=== PATIENT | male | born 1995 | race African-American/Black ===

== ENCOUNTER 2017-05-15 08:57 | Emergency (ER) | payer OTHER ==
[~2017-05-15 08:57] MED LIST: LANTI SQ; LANTUS SOLOS100 U/M1 SQ; LIPI10 PO; NOVOLOG100 U/ML SC; PRILOSEC20 MG PO; ZESTRIL5 MG PO
[2017-05-15 11:07] VITALS: BP 128/76
== END 2017-05-15 11:07 | disposition home or self-care (01) ==
LOC: ED 08:57
DX: J02.9 Acute pharyngitis, unspecified (principal); I10 Essential (primary) hypertension; E11.9 Type 2 diabetes mellitus without complications; Z79.899 Other long term (current) drug therapy
CPT/HCPCS: J1885

== ENCOUNTER 2017-05-21 15:31 | Inpatient (IN) | payer OTHER ==
[~2017-05-21] VITALS: Ht 185.4 cm; Wt 28.0 kg
--- NOTE | 2017-05-21 17:47 | NUR ---
DR FLOWER AT BEDSIDE, NEW ORDERS FOR ABG'S TO BE DRAWN
--- NOTE | 2017-05-21 17:58 | NUR ---
PT BROUGHT IN VIA [employer] [facility] TO BE EVALUATED FOR THE COMPLAINT OF HYPERGLYCEMIA, XEROSTOMIA, AND LEFT EAR ACHE WHICH THE PT IS ALREADY BEING TREATED FOR WITH AMOXICILLIN. KUSSMAUL RESPIRATIONS NOTED. PT APPEARS LETHARGIC. PT ANSWERING QUESTIONS APPROPRIATELY. PT IS A/O X 4. MSE COMPLETED BY DR. FLOWER
[2017-05-21 18:45] LABS: BASOPHIL % 0.2 % (0-2); PLATELET COUNT 289 x10^3mcL (130-400); RED CELL DISTRIBUTION WIDTH 12.7 % (11.5-14.5)
[2017-05-21 18:52] LABS: UA SPECIFIC GRAVITY 1.015 (1.005-1.035); microscopic required? YES; urine erythrocyte TRACE (NEGATIVE)
[2017-05-21 19:01] LABS: ALBUMIN 3.5 g/dL (3.4-5.0); BILIRUBIN TOTAL 0.53 mg/dL (0.20-1.00); CALCIUM 10.1 mg/dL (8.5-10.1); CARBON DIOXIDE 10.6 mmol/L (21-32); CREATININE SERUM 1.8 mg/dL (0.7-1.3)
--- NOTE | 2017-05-21 19:02 | NUR ---
PT REMAINS RESTING IN A POSITION OF COMFORT IN LOW POSITIONED BED WITH SIDE RAILS UP X 2 AND CALL LIGHT WITHIN REACH.
[2017-05-21 19:03] LABS: TOTAL PROTEIN, SERUM 9.8 g/dL (6.4-8.2)
[2017-05-21 19:04] LABS: POTASSIUM SERUM 5.6 mmol/L (3.5-5.1)
--- NOTE | 2017-05-21 19:29 | NUR ---
REPORT RECEIVED BY MAVERICK GOMEZ. PT RESTING IN BED WITH NO SIGNS OF DISTRESS AT THIS TIME. FAMILY AT BEDSIDE.
[2017-05-21 20:12] LABS: FREE T4 1.09 ng/dL (0.76-1.46); T3 TOTAL 0.6 ng/mL
--- NOTE | 2017-05-21 20:13 | NUR ---
REPORT GIVEN TO SONAL GOMEZ.
[2017-05-21 20:20] LABS: CALCIUM 8.6 mg/dL (8.5-10.1); CHLORIDE SERUM 104 mmol/L (98-107); CREATININE SERUM 1.5 mg/dL (0.7-1.3); GFR1 > 60 mL/min; GLUCOSE SERUM 414 mg/dL (74-106); MAGNESIUM 2.1 mg/dL (1.8-2.4); PHOSPHOROUS 4.4 mg/dL (2.5-4.9); SODIUM SERUM 138 mmol/L (136-145)
[2017-05-21 20:26] LABS: CARBON DIOXIDE 9.7 mmol/L (21-32)
[2017-05-21 20:48] VITALS: BP 143/89
--- NOTE | 2017-05-21 23:20 | NUR ---
LAB AT BEDSIDE TO DRAW BLOOD.PTS MOM INQUIRED BY PHONE UPDATED ON PTS STATUS.
[2017-05-21 23:29] VITALS: BP 136/80
[2017-05-22 00:02] LABS: CALCIUM 8.8 mg/dL (8.5-10.1); CHLORIDE SERUM 102 mmol/L (98-107); CREATININE SERUM 1.4 mg/dL (0.7-1.3); GFR1 > 60 mL/min; GLUCOSE SERUM 252 mg/dL (74-106); MAGNESIUM 2.3 mg/dL (1.8-2.4); PHOSPHOROUS 3.8 mg/dL (2.5-4.9); POTASSIUM SERUM 5.1 mmol/L (3.5-5.1); SODIUM SERUM 137 mmol/L (136-145)
[2017-05-22 00:08] LABS: CARBON DIOXIDE 9.4 mmol/L (21-32)
--- NOTE | 2017-05-22 00:15 | NUR ---
PT VOMITTED BROWNISH 200 ML;ZOFRAN GIVEN ORDERED.PTS AUNT AT BEDSIDE UPDATED ON PTS STATUS.
--- NOTE | 2017-05-22 02:41 | NUR ---
OFF INSULIN GTT PER INSULIN PROTOCOL BS 89.
--- NOTE | 2017-05-22 04:09 | NUR ---
SLEEPING AT LONG INTERVALS.LATEST BS 141 OFF INSULIN GTT.RIGHT AC IV WITH NS AT 200 ML/H INFUSING WELL WITH NO INFILTRATION NOTED.NO FURTHER VOMITTING NOTED.CARDIAC SCOPE SHOWS SR WITH NO ECTOPIES.ON ROOM AIR MAINTAINING O2 SAT 100%.CALL LIGHT WITHIN REACH BED ON LOW POSITION.
[2017-05-22 04:14] VITALS: BP 120/72
--- NOTE | 2017-05-22 04:39 | NUR ---
PT SLEEPING ACCU CHECK 266 RE-STARTED INSULIN GTT AT 3 UNITS/H WILL CONTINUE TO MONITOR.
[2017-05-22 05:28] LABS: BASOPHIL % 0.3 % (0-2); CALCIUM 8.7 mg/dL (8.5-10.1); CARBON DIOXIDE 12.6 mmol/L (21-32); CHLORIDE SERUM 105 mmol/L (98-107); CREATININE SERUM 1.4 mg/dL (0.7-1.3); GFR1 > 60 mL/min; GLUCOSE SERUM 262 mg/dL (74-106); MAGNESIUM 2.1 mg/dL (1.8-2.4); PLATELET COUNT 292 x10^3mcL (130-400); POTASSIUM SERUM 4.6 mmol/L (3.5-5.1); RED CELL DISTRIBUTION WIDTH 12.8 % (11.5-14.5); SODIUM SERUM 138 mmol/L (136-145)
--- NOTE | 2017-05-22 07:00 | NUR ---
REPORT RECEIVED AT THIS TIME FROM NOC RN AT BEDSIDE, ALL QUESTIONS ANSWERED, ALL CONCERNS ADDRESSED.
[2017-05-22 08:00] VITALS: BP 115/87
--- NOTE | 2017-05-22 08:00 | NUR ---
PT ASSESSED AT THIS TIME. PT LAYING IN BED SLEEPING. EASILY AROUSABLE AT THIS TIME. PT'S AUNT AT BEDSIDE. PT HAS INSULIN AND NS INFUSING INTO PERIPHERAL LINE. NO SIGN OF INFILTRATION. PT DENIES PAIN AND DISCOMFORT AT THIS TIME. WILL CONTINUE TO MONITOR.
[2017-05-22 08:46] LABS: CALCIUM 8.8 mg/dL (8.5-10.1); CARBON DIOXIDE 16.1 mmol/L (21-32); CHLORIDE SERUM 110 mmol/L (98-107); CREATININE SERUM 1.4 mg/dL (0.7-1.3); GFR1 > 60 mL/min; GLUCOSE SERUM 87 mg/dL (74-106); MAGNESIUM 2.1 mg/dL (1.8-2.4); PHOSPHOROUS 2.9 mg/dL (2.5-4.9); POTASSIUM SERUM 3.9 mmol/L (3.5-5.1); SODIUM SERUM 140 mmol/L (136-145)
--- NOTE | 2017-05-22 09:00 | NUR ---
BLOOD SUGAR 88, PT'S INSULIN DRIP STOPPED AT THIS TIME. WILL REASSESS.
--- NOTE | 2017-05-22 11:45 | NUR ---
DR YOON IN TO SEE PT AT THIS TIME. UPDATES PROVIDED. NEW ORDERS RECIEVED.
[2017-05-22 12:00] VITALS: BP 138/81
--- NOTE | 2017-05-22 12:00 | NUR ---
PT ASSESSED AT THIS TIME. PT ON INSULIN DRIP AT 1U/HR AT THIS TIME. PT HAS NS INFUSING AT THIS TIME. PT DENIES PAIN AND DISTRESS AT THIS TIME. PT BREATHING EQUAL AND UNLABORED. WILL CONTINUE TO MONITOR.
--- NOTE | 2017-05-22 12:34 | NUR ---
PT FELT NAUSEOUS AND VOMITED X1. ZOFRAN ADMINISTERED.
[2017-05-22 12:36] LABS: CHLORIDE SERUM 108 mmol/L (98-107); CREATININE SERUM 1.4 mg/dL (0.7-1.3); GFR1 > 60 mL/min; GLUCOSE SERUM 183 mg/dL (74-106); POTASSIUM SERUM 4.6 mmol/L (3.5-5.1); SODIUM SERUM 142 mmol/L (136-145)
--- NOTE | 2017-05-22 15:15 | NUR ---
PT'S MOTHER CALLED UNIT AT THIS TIME. UPDATES PROVIDED.
[2017-05-22 15:30] VITALS: BP 120/70
--- NOTE | 2017-05-22 15:30 | NUR ---
PT REASSESSED AT THIS TIME. PT LAYING IN BED SLEEPING, EASILY AROUSABLE TO STIMULI. PT'S AUNT REMAINS AT BEDSIDE AT THIS TIME. PT DENIES PAIN AND DISCOMFORT, NO N/V NOTED. INSULIN INFUSING. WILL CONTINUE TO MONITOR.
[2017-05-22 17:00] LABS: CALCIUM 8.8 mg/dL (8.5-10.1); CARBON DIOXIDE 16.1 mmol/L (21-32); CHLORIDE SERUM 114 mmol/L (98-107); CREATININE SERUM 1.3 mg/dL (0.7-1.3); GFR1 > 60 mL/min; GLUCOSE SERUM 136 mg/dL (74-106); POTASSIUM SERUM 4.4 mmol/L (3.5-5.1); SODIUM SERUM 147 mmol/L (136-145)
--- NOTE | 2017-05-22 19:20 | NUR ---
REPORT TAKEN FROM HECTOR, ALL CARE ENDORSSED.
[2017-05-22 19:30] VITALS: BP 123/75
--- NOTE | 2017-05-22 19:30 | NUR ---
RECEIVD PT IN BED SLEEPING, VEBALLY ARROUSSABLE. PT IS A/OX4, DENIES PAIN AND DISTRESS. LUNG SOUND CLEAR BILAT. RESP IS EVEN AND ULABORED. IVF WITH NS AT 200ML/HR. INSULIN DRIP AT 1 UNIT/HR PER PROTOCOL. HOURLY ACCUCHECK, LAST GAP WAS 16.9 BOWEL SOUND ACTIVE X4Q. FAMILY AT PT BEDSIDE. SAFETY IN PLACE. CALL LIGHT WITHIN REACH. WILL CONTINUE TO MONITOR.
--- NOTE | 2017-05-22 19:58 | NUR ---
MECHANICAL MAINTENANCE INSTRUCTOR AT PT BEDSIDE TO DRAW BLOOD.
[2017-05-22 20:12] LABS: BASOPHIL % 1.3 % (0-2); PLATELET COUNT 278 x10^3mcL (130-400)
[2017-05-22 20:19] LABS: CALCIUM 8.7 mg/dL (8.5-10.1); CARBON DIOXIDE 14.9 mmol/L (21-32); CHLORIDE SERUM 112 mmol/L (98-107); CREATININE SERUM 1.3 mg/dL (0.7-1.3); GFR1 > 60 mL/min; GLUCOSE SERUM 186 mg/dL (74-106); POTASSIUM SERUM 4.1 mmol/L (3.5-5.1); SODIUM SERUM 142 mmol/L (136-145)
--- NOTE | 2017-05-22 22:00 | NUR ---
GAP 15.1
--- NOTE | 2017-05-22 22:44 | NUR ---
DR YOON CALLED. UPDATED ON PT'S STATUS. NOW ORDER OF SODIUN BICARB 100 MEQ IVP X1. WE CARRIED THE ORDER
--- NOTE | 2017-05-22 23:19 | NUR ---
METAL MOCKUP MAKER AT PT BEDSIDE TO DRAW BLOOD.
[2017-05-22 23:44] LABS: CALCIUM 8.4 mg/dL (8.5-10.1); CHLORIDE SERUM 105 mmol/L (98-107); CREATININE SERUM 1.3 mg/dL (0.7-1.3); GFR1 > 60 mL/min; GLUCOSE SERUM 204 mg/dL (74-106); POTASSIUM SERUM 3.8 mmol/L (3.5-5.1); SODIUM SERUM 142 mmol/L (136-145)
--- NOTE | 2017-05-22 23:50 | NUR ---
REASSESSMENT IS COMPLATED. PT IS SLEEPING EASILY ARROUSSABLE. A/OX4. FOLLOWS COMAND. CLEAR SPEECH. ATE HALF OF HIS DINNER. ALL PT NEEDS ATTENDED.SAFETY IN P0LACE. CALL LIGHT WITHIN REACH. WILL CONTINUE TO MONITOR.
[2017-05-23] VITALS: BP 127/66
--- NOTE | 2017-05-23 | NUR ---
GAP 12 AT TIME.
--- NOTE | 2017-05-23 00:10 | NUR ---
DR YOON CALLED AND GAVE A PHONE ORDER TO STOP THE INSULIN DRIP AND GIVE LANTUS [id number] AND ACCUCHECK ACHS. WE CARRIED OUT THE ORDER.
--- NOTE | 2017-05-23 00:20 | NUR ---
PER DR ELMORE IT IS OKAY TO REPLACE LANTUS WITH LEVEMIR
--- NOTE | 2017-05-23 03:00 | NUR ---
BED BATH GIVEN, AND BED SHEETS . PT IS CDI
[2017-05-23 03:47] VITALS: BP 126/63
--- NOTE | 2017-05-23 03:53 | NUR ---
REASSESSMENT IS COMPLETED. PT IS MORE AWAKE. FOLLOWS COMAND. RESP IS EVEN AND UNLABORED. BOWEL SOUND ACTIVE X4Q. SAFETY MAINTAINED. WILL CONTINUE TO MONITOR.
--- NOTE | 2017-05-23 04:59 | NUR ---
FIXER SUPERVISOR AT PT BEDSIDE TO DRAW MORNING BLOOD
[2017-05-23 05:30] LABS: BASOPHIL % 0.3 % (0-2); PLATELET COUNT 275 x10^3mcL (130-400); RED CELL DISTRIBUTION WIDTH 12.7 % (11.5-14.5)
[2017-05-23 05:33] LABS: CALCIUM 8.1 mg/dL (8.5-10.1); CARBON DIOXIDE 23.4 mmol/L (21-32); CHLORIDE SERUM 106 mmol/L (98-107); CREATININE SERUM 1.2 mg/dL (0.7-1.3); GFR1 > 60 mL/min; GLUCOSE SERUM 180 mg/dL (74-106); POTASSIUM SERUM 3.3 mmol/L (3.5-5.1); SODIUM SERUM 143 mmol/L (136-145)
--- NOTE | 2017-05-23 06:47 | NUR ---
NO S/S OF DISTRESS. PT IS MORE AWAKE ANA SANDWISH. MORNING BLOOD GLUCOSE 146MG/DL, ALL PT NEEDS ATTENDED. PT IS IN A STABLE CONDITION. WILL ENDORSE THE CARE TO DAY NURSE.
--- NOTE | 2017-05-23 07:10 | NUR ---
REPORT RECEIVED FROM [facility] SHIFT RN MOHINDER. UPDATES PROVIDED, ALL QUESTIONS ANSWERED ALL CONCERNS ADDRESSED. WILL CONTINUE TO MOINTOR PATIENT.
--- NOTE | 2017-05-23 07:13 | NUR ---
REPORT GIVEN TO JANIS. ALL CARE ENDORSSED.
--- NOTE | 2017-05-23 07:28 | NUR ---
BREAKFAST TRAY BROUGHT AT THIS TIME. PATIENT SLEEPING.
[2017-05-23 07:30] VITALS: BP 134/79
--- NOTE | 2017-05-23 07:30 | NUR ---
PATIENT IS RESTING CALMLY IN BED AT THIS TIME, NO DISTRESS NOTED. VITAL SIGNS ARE TEMP 97.5, HR 60, O2 99, BP 134/79(98), RR 24. PATIENT OPENS EYES SPONTANEOUSLY, FOLLOWS COMMANDS APPROPRIATELY AND RESPONDS APPROPRIATELY. PATIENT HAS NO HX OF CVA OR ALZHEIMERS. NO SEDATION ON AT THIS TIME. PATIENT TRACHEA IS MIDLINE, NO SCLERAL EDEMA NOTED. NO SUPPLEMENTAL OXYGEN OR TUBE FEEDING IN PLACE. PATIENT IS ON ROOM AIR AND SATTING WELL. LUNG SOUNDS ARE CLEAR BILATERALLY, CHEST RISES SYMMETRICALLY. PATIENT ABDOMEN IS SOFT AND ROUND AND SHOWS NO SIGNS OF PAIN UPON PALPATION. SMALL AMOUNTS OF EPIGASTRIC PAIN NOTED BUT PATIENT SAYS ITS MINOR AND DOES NOT NEED ANY MEDICATION. BOWEL SOUNDS ARE ACTIVE IN ALL 4 QUADRANTS. NO BM NOTED AT THIS TIME. PATIENT IS VOIDING TO HANDHELD URINAL. NO URINE NOTED AT THIS TIME. PATIENT HAS ACTIVE ROM TO ALL EXTREMITIES. NO OBVIOUS CONTRACTURES OR DEFORMITIES NOTED. PATIENT HAS POSITIVE FAMILY DYNAMICS, NO S/S OF DEPRESSION OR ANXIETY NOTED. PATIENT HAS RIGHT AND LEFT AC IV ACCESS SITES WELL A RIGHT FOREARM SITE WHICH IS INFUSING NS AT 200 ML/HR. ALL SITES PATENT AND FLUSHING WELL. WILL CONTINUE TO MONITOR PATIENT.
--- NOTE | 2017-05-23 09:30 | NUR ---
DR. YOON CALLED UNIT AT THIS TIME, UPDATES PROVIDED, ALL QUESTIONS ANSWERED ALL CONCERNS ADDRESSED. POTASSIUM 40 MEQ ORAL REPLACEMENT TO BE ORDERED. PATIENT TO BE DISCHARGED LATER ON TODAY WHEN DR. YOON COMES TO UNIT. WILL CONTINUE TO MONITOR PATIENT.
--- NOTE | 2017-05-23 10:10 | NUR ---
PATIENT WOKEN UP AT THIS TIME FOR MEDICATION ADMINISTRATION, PATIENT IS NOT GOING TO EAT BREAKFAST. PATIENT NOTIFIED OF PLAN OF CARE AND WILL ARRANGE FOR TRANSPORTATION. WILL CONTINUE TO MONITOR PATIENT.
[2017-05-23 12:00] VITALS: BP 143/78
--- NOTE | 2017-05-23 12:17 | NUR ---
LUNCH TRAY PROVIDED TO PATIENT AT THIS TIME. WILL CONTINUE TO MONITOR PATIENT.
--- NOTE | 2017-05-23 15:38 | NUR ---
RECIEVED REPORT FROM JASON BRUCE TO ASSUME ALL CARE. ALL QUESTIONS AND CONCERNS ADDRESSED. PATIENT CURRENTLY SITTING UP IN BED WATCHING TV. RESPIRATIONS ARE EQUAL AND SYMMETRICAL. NO SIGNS OF DISTRESS. VSS. BED TO LOWEST POSITION, SIDE RAILS UP X2, CALL LIGHT WITHIN REACH. WILL CONTINUE TO MONITOR.
[2017-05-23 16:00] VITALS: BP 142/80
[2017-05-23 17:04] VITALS: BP 146/90
--- NOTE | 2017-05-23 17:32 | NUR ---
DR YOON ON UNIT AND SPOKE WITH FAMILY. PATIENT TO BE DISCHARGED HOME. IV'S REMOVED BY TIFFANIE GOMEZ. PATIENT'S MOTHER AT BEDSIDE. EDUCATION PROVIDED REGARDING MEDICATIONS AND DIABETES COMPLIANCE. PATIENT AND MOTHER VERBALIZED AN UNDERSTANDING. PATIENT TO BE DISCHARGED WITH ALL PATIENT BELONGINGS. AWAITING PAPER SCRUBS FROM DIRECTOR OF REIMBURSEMENT.
== END 2017-05-23 18:10 | disposition home or self-care (01) | DRG 420 ==
LOC: ED 15:31 → IC 19:30
PROVIDERS: Emergency Medicine; Internal Medicine Pulmonary Disease; ADMIT Internal Medicine Pulmonary Disease
DX: E13.10 Other specified diabetes mellitus with ketoacidosis without coma (principal); I10 Essential (primary) hypertension; E78.00 Pure hypercholesterolemia, unspecified; E78.5 Hyperlipidemia, unspecified; Z82.49 Family history of ischemic heart disease and other diseases of the circulatory system; H66.90 Otitis media, unspecified, unspecified ear
CPT/HCPCS: 36600; 83880; 84439; J0456; J0696; J1815; J1956; J2405; J3490; J7030

== ENCOUNTER 2017-07-27 17:59 | Emergency (ER) | payer OTHER | END 2017-07-27 21:45 | disposition other institution (70) | LOC: ED 17:59 | DX: Z02.89 Encounter for other administrative examinations (principal) ==

== ENCOUNTER 2017-07-27 17:59 | Emergency (ER) | payer OTHER ==
[~2017-07-27] VITALS: Ht 182.9 cm; Wt 67.1 kg
[2017-07-27 18:41] LABS: BASOPHIL % 0.5 % (0-2); PLATELET COUNT 291 x10^3mcL (130-400); RED CELL DISTRIBUTION WIDTH 13.7 % (11.5-14.5)
[2017-07-27 18:52] LABS: ALBUMIN 3.5 g/dL (3.4-5.0); ALKALINE PHOSPHATASE 108 U/L (46-116); ALT/SGPT 33 U/L (16-63); AST/SGOT 20 U/L (15-37); BILIRUBIN TOTAL 0.5 mg/dL (0.20-1.00); CALCIUM 9.4 mg/dL (8.5-10.1); CARBON DIOXIDE 27.5 mmol/L (21-32); CHLORIDE SERUM 97 mmol/L (98-107); CREATININE SERUM 0.9 mg/dL (0.7-1.3); GFR1 > 60 mL/min; TOTAL PROTEIN, SERUM 8.1 g/dL (6.4-8.2)
[2017-07-27 19:07] LABS: GLUCOSE SERUM 453 mg/dL (74-106)
[2017-07-27 19:11] LABS: POTASSIUM SERUM 5.3 mmol/L (3.5-5.1); SODIUM SERUM 126 mmol/L (136-145)
[2017-07-27 19:21] LABS: CK-MB 0.8 ng/mL (0-3.6)
[2017-07-27 21:00] LABS: CALCIUM 8.4 mg/dL (8.5-10.1); CARBON DIOXIDE 23.2 mmol/L (21-32); CHLORIDE SERUM 105 mmol/L (98-107); CREATININE SERUM 0.8 mg/dL (0.7-1.3); GFR1 > 60 mL/min; GLUCOSE SERUM 286 mg/dL (74-106); POTASSIUM SERUM 4.1 mmol/L (3.5-5.1); SODIUM SERUM 139 mmol/L (136-145)
[2017-07-27 21:45] VITALS: BP 123/77
== END 2017-07-27 21:45 | disposition other institution (70) ==
LOC: ED 17:59
PROVIDERS: Emergency Medicine
DX: E11.65 Type 2 diabetes mellitus with hyperglycemia (principal); I10 Essential (primary) hypertension; Z79.4 Long term (current) use of insulin
CPT/HCPCS: J1815; J7030; Q0092